=== PATIENT | female | born 1965 | race Caucasian/White ===

== ENCOUNTER 2019-05-01 17:55 | Emergency (ER) | payer OTHER ==
[2019-05-01 18:38] VITALS: RESP 20; TEMP 98.1
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
[2019-05-01 20:48] VITALS: BP 125/77; PULSE 69
== END 2019-05-01 20:47 | disposition home or self-care (01) ==
LOC: EC 17:55
DX: R51 Headache (principal); M54.2 Cervicalgia; Z88.6 Allergy status to analgesic agent; Z88.1 Allergy status to other antibiotic agents; Z88.5 Allergy status to narcotic agent; Z88.2 Allergy status to sulfonamides; V89.2XXA Person injured in unspecified motor-vehicle accident, traffic, initial encounter; Y92.89 Other specified places as the place of occurrence of the external cause
CPT/HCPCS: 70450; 72125; 99284

== ENCOUNTER 2020-09-20 21:50 | Emergency (ER) | payer BC, OTHER ==
[2020-09-20 21:57] VITALS: BP 131/81; PULSE 69; RESP 16; TEMP 98.1
[2020-09-20] MEDS: MORPHINE SULFATE 4 MG/ML SYRINGE IM STA (22:12)
--- NOTE | 2020-09-20 22:36 | XR ---
EXAMINATION TYPE: XR knee complete LT DATE OF EXAM: 09/20/2020 COMPARISON: NONE HISTORY: Knee pain TECHNIQUE: 3 views FINDINGS: There is no evidence of fracture nor dislocation. There is mild spurring of the medial femo ral and tibial condyles. There is no sign of joint effusion. IMPRESSION: Minimal osteoarthritis in the medial joint space. No fracture.
--- NOTE | 2020-09-20 22:47 | ED ---
Lower Extremity Injury HPI - General Chief Complaint: Extremity Injury, Lower Stated Complaint: L Knee Pain Time Seen by Provider: 09/20/20 21:58 Source: patient, family, RN notes reviewed Mode of arrival: wheelchair Limitations: no limitations - History of Present Illness Initial Comments: Patient is a 55-year-old female that presents to the emergency department complaining of left knee pain. She notes she was running when she felt a pop in her knee. She notes that it is hard to bear weight on that left knee. She notes that she has had a history of knee issues but nothing too serious. She denied ever seeing any specialists for any pain. She was otherwise in no apparent distress or pain while sitting up in bed during exam and interview. Sh maury did have full range of motion of her knee. She did have sensation in her left foot lower leg. She denied any chest pain shortness of breath headache nausea vomiting diarrhea constipation fever fatigue chills. - Related Data Home Medications Medication Instructions Recorded Confirmed Biotin 5 mg PO DAILY 01/23/16 01/26/16 Cyanocobalamin [Vitamin B-12] 500 mcg PO DAILY 01/23/16 01/26/16 L.acidoph,Paracasei, B.lactis 1 each PO DAILY 01/23/16 01/26/16 [Probiotic] Multivit with Calcium,Iron,Min 1 each PO DAILY 01/23/16 01/26/16 [Women's Daily Multivitamin] Previous Rx's Medication Instructions Recorded Ketorolac [Toradol] 10 mg PO Q8HR #15 tab 09/20/20 Allergies Allergy/AdvReac Type Severity Reaction Status Date / Time acetaminophen Allergy Rash/Hives Verified 09/20/20 21:57 [From Darvocet-N 100] erythromycin base Allergy Rash/Hives Verified 09/20/20 21:57 propoxyphene Allergy Rash/Hives Verified 09/20/20 21:57 [From Darvocet-N 100] sulfamethoxazole Allergy Rash/Hives Verified 09/20/20 21:57 [From Bactrim] trimethoprim [From Bactrim] Allergy Rash/Hives Verified 09/20/20 21:57 Review of Systems ROS Statement: Those systems with pertinent positive or pertinent negative responses have been documented in the HPI. ROS Other: All systems not noted in ROS Statement are negative. Past Medical History Past Medical History: No Reported History History of Any Multi-Drug Resistant Organisms: None Reported Past Surgical History: Hernia Repair Additional Past Surgical History / Comment(s): D & C Past Anesthesia/Blood Transfusion Reactions: Previous Problems w/ Anesthesia Additional Past Anesthesia/Blood Transfusion Reaction / Comment(s): slow to wake up w/hernia repair Past Psychological History: No Psychological Hx Reported Smoking Status: Never smoker Past Alcohol Use History: Occasional Past Drug Use History: None Reported - Past Family History Mother Family Medical History: No Reported History General Exam Limitations: no limitations General appearance: alert, in no apparent distress Head exam: Present: atraumatic, normocephalic, normal inspection Eye exam: Present: normal appearance, PERRL, EOMI. Absent: scleral icterus, conjunctival injection, periorbital swelling Respiratory exam: Present: normal lung sounds bilaterally Cardiovascular Exam: Present: regular rate, normal rhythm, normal heart sounds. Absent: systolic murmur, diastolic murmur, rubs, gallop, clicks Extremities exam: Present: normal inspection, full ROM, normal capillary refill. Absent: tenderness, pedal edema, joint swelling, calf tenderness Left Knee exam: Present: pain/laxity with valgus Neurological exam: Present: alert, oriented X3 Psychiatric exam: Present: normal affect, normal mood Skin exam: Present: warm, dry, intact, normal color. Absent: rash Course Vital Signs 09/20/20 21:53 Temperature 98.1 F Pulse Rate 69 Respiratory 16 Rate Blood Pressure 131/81 O2 Sat by Pulse 97 Oximetry Medical Decision Making - Medical Decision Making 55-year-old female complaining of left knee pain after running and feeling a pop. X-ray the left knee ordered. X-ray negative for any acute fractures. Given clinical symptoms and negative imaging patient most likely has soft tissue injury to the medial aspect of the left knee. Case discussed with Dr. Schaefer, patient can discharge home with follow-up orthopedics. Patient states that she will [facility] or orthopedist that did her 's quadricep repair. Disposition Clinical Impression: Left knee pain Disposition: HOME SELF-CARE Condition: Stable Instructions (If sedation given, give patient instructions): Knee Pain (ED) Additional Instructions: Please return to the Emergency Department if symptoms worsen or any other concerns. Avoid any excessive weight bearing activity on the left leg until he can be seen by orthopedics. Wear knee immobilizer throughout the day. Take Tylenol and Motrin as needed for pain control. Take Tylenol 3 as prescribed. Is patient prescribed a controlled substance at d/c from ED?: No Referrals: Maycol Almonte MD [Primary Care Provider] - 1-2 days Time of Disposition: 22:47
[2020-09-20] MEDS: ACET/COD 300 MG/30 MG STARTER PACK 6 TAB BTL PO STA (23:08)
== END 2020-09-20 23:09 | disposition home or self-care (01) ==
LOC: EC 21:50
DX: M25.562 Pain in left knee (principal)
CPT/HCPCS: 96372; 99283

== ENCOUNTER → 2020-11-01 | Outpatient (CLI) | payer BC ==
[2020-11-01 17:55] LABS: Chol/HDL Ratio 3.4
[2020-11-01 18:02] LABS: Progesterone 3.4 ng/mL
[2020-11-01 18:03] LABS: Estradiol 128.6 pg/mL; Luteinizing Hormone 8.6 mIU/mL; Prolactin 7.1 ng/mL (2.8-29.2); T4, Free (Free Thyroxine) 1.1 ng/dL (0.80-1.80)
[2020-11-01 18:04] LABS: Follicle Stimulating Hormone 11.2 mIU/mL
== END | disposition home or self-care (01) ==
LOC: LABWHC1 10:44
PROVIDERS: ATTEND Obstetrics & Gynecology
DX: Z13.220 Encounter for screening for lipoid disorders (principal); Z13.29 Encounter for screening for other suspected endocrine disorder; N95.1 Menopausal and female climacteric states
CPT/HCPCS: 36415; 80061; 82670; 82947; 83001; 83002; 84144; 84146; 84439; 84443; 84479

== ENCOUNTER → 2020-12-03 | Outpatient (CLI) | payer BC ==
[2020-12-03 14:18] LABS: Basophils # (A) 0.1 k/uL (0-0.2); Basophils % (A) 1 %; Eosinophils # (A) 0.3 k/uL (0-0.7); Eosinophils % (A) 3 %; HCT 41.9 % (34.0-46.0); HGB 14.6 gm/dL (11.4-16.0); Lymphocytes # (A) 2.6 k/uL (1.0-4.8); Lymphocytes % (A) 25 %; MCH 31.6 pg (25.0-35.0); MCV 90.2 fL (80.0-100.0); Mean Platelet Volume 6.9; Monocytes # (A) 0.7 k/uL (0-1.0); Monocytes % (A) 6 %; Neutrophils # (A) 6.7 k/uL (1.3-7.7); Neutrophils % (A) 64 %; Platelet Count 479 k/uL (150-450); RBC 4.64 m/uL (3.80-5.40); RDW 12.6 % (11.5-15.5); WBC 10.4 k/uL (3.8-10.6)
== END | disposition home or self-care (01) ==
LOC: LABPAT 13:02
PROVIDERS: ATTEND Obstetrics & Gynecology
DX: Z01.818 Encounter for other preprocedural examination (principal)
CPT/HCPCS: 36415; 85025; 93005

== ENCOUNTER 2020-12-09 06:31 | Day surgery (SDC) | payer BC ==
[2020-12-05 15:27] VITALS: BMI 26.2
--- NOTE | 2020-12-05 17:14 | P.HPOB ---
History of Present Illness H&P Date: 12/05/20 Chief Complaint: Dysfunction uterine bleeding and possible fibroids Louise is a 55-year-old female with continued vaginal bleeding she is not menopausal based on an ongoing a full year without stopping her menses her FSH LH are also consistent with not menopausal. She does have discomfort bleeding on ultrasound shows endometrial polyp versus endometrial fibroid she is undergoing D&C with hysteroscopy to better define this and if polyp plan for removal. Risks/benefits/alternatives to this procedure were reviewed the patient in detail all questions were answered for her prior to proceeding to the operative room. On physical exam vital signs are stable and afebrile. Heart regular, lungs clear, extremities without pain. Ellik exam shows uterus only we'll plan D&C with hysteroscopy. Past Medical History Past Medical History: Musculoskeletal Disorder Additional Past Medical History / Comment(s): gastric ulcer as a teen, current torn meniscus left knee, uterine fibroid History of Any Multi-Drug Resistant Organisms: None Reported Past Surgical History: Hernia Repair Additional Past Surgical History / Comment(s): D & C Past Anesthesia/Blood Transfusion Reactions: Previous Problems w/ Anesthesia Additional Past Anesthesia/Blood Transfusion Reaction / Comment(s): slow to wake up w/hernia repair Smoking Status: Never smoker - Past Family History Mother Family Medical History: No Reported History Medications and Allergies Home Medications Medication Instructions Recorded Confirmed Type Cyanocobalamin [Vitamin B-12] 500 mcg PO DAILY 01/23/16 12/05/20 History L.acidoph,Paracasei, B.lactis 1 each PO DAILY 01/23/16 12/05/20 History [Probiotic] Multivit with Calcium,Iron,Min 1 each PO DAILY 01/23/16 12/05/20 History [Women's Daily Multivitamin] Ascorbic Acid [Vitamin C] 500 mg PO DAILY 12/05/20 12/05/20 History Calcium Carbonate [Tums] 500 mg PO DAILY 12/05/20 12/05/20 History Menopautonic 1 tab PO DAILY 12/05/20 12/05/20 History Vitamin C/Biotin [Hair, Skin and 1 tab PO DAILY 12/05/20 12/05/20 History Nails Chew] Allergies Allergy/AdvReac Type Severity Reaction Status Date / Time acetaminophen Allergy Rash/Hives Verified 12/05/20 15:06 [From Darvocet-N 100] erythromycin base Allergy Rash/Hives Verified 12/05/20 15:06 propoxyphene Allergy Rash/Hives Verified 12/05/20 15:06 [From Darvocet-N 100] sulfamethoxazole Allergy Rash/Hives Verified 12/05/20 15:06 [From Bactrim] trimethoprim [From Bactrim] Allergy Rash/Hives Verified 12/05/20 15:06 Exam Osteopathic Statement: *. No significant issues noted on an osteopathic structural exam other than those noted in the History and Physical/Consult. Intake and Output 12/05/20 12/05/20 12/05/20 06:59 14:59 22:59 Other: Weight 64.864 kg
[~2020-12-09 06:31] MED LIST: DEXAMETHASONE SOD PHOSPHATE 4 MG/ML 1 ML VIAL IV ONE; LACTATED RINGERS 1,000 ML IV SCH; LIDOCAINE 1% (10MG/ML) FOR IV START INTRADERMA PRN; ONDANSETRON 4 MG/2 ML VIAL IVP ONE; Pre Op ABX Message 1 EACH MISC MISCELLANE ONE; SCOPOLAMINE 1.5MG/72HR PATCH TRANSDERM ONE
[2020-12-09] MEDS ORDERED: HYDROmorphone 0.5 MG/0.5 ML SYRINGE IVP PRN (07:00)
[2020-12-09] MEDS ORDERED: MIDAZOLAM 2 MG/2 ML VIAL ONE (07:38)
[2020-12-09] MEDS ORDERED: GLYCOPYRROLATE 0.2 MG/ML 2 ML VIAL ONE (07:38)
[2020-12-09] MEDS ORDERED: KETOROLAC 15 MG/ML 1 ML VIAL ONE (07:38)
[2020-12-09] MEDS ORDERED: LIDOCAINE 1% INJ 10MG/ML (20 ML MDV) ONE (07:38)
[2020-12-09] MEDS ORDERED: fentaNYL (PF) 50 MCG/ML 2 ML AMP ONE (07:38)
[2020-12-09] MEDS ORDERED: PROPOFOL 10 MG/ML 20 ML VIAL IV ONE (07:38)
--- NOTE | 2020-12-09 08:05 | P.OP ---
Date of Procedure: 12/09/20 Preoperative Diagnosis: Postmenopausal bleeding Postoperative Diagnosis: Same with polyp noted Procedure(s) Performed: D&C with hysteroscopy and polypectomy Anesthesia: SARAH Surgeon: Collin Nava Estimated Blood Loss (ml): 3 IV fluids (ml): 400 Pathology: other (Uterine curettings) Condition: stable Disposition: same day Operative Findings: Pathology pending Description of Procedure: Patient was taken to the operating suite where a general anesthetic was found be adequate. She was prepped and draped in the normal sterile fashion and placed in the dorsal lithotomy position. Initially a weighted speculum was inserted in the vagina and the anterior lip of cervix identified and grasped with a tooth tenaculum. Cervix was then dilated camera was inserted. Polyp was noted extending from the endometrium as well as a polyp on the external cervix. The external cervix polyp was removed following removal of camera with a polyp forceps. Sharp curettings of the endometrium were then obtained and polyp forceps was again used. All of this tissues collected, placed on Telfa, and sent to pathology for evaluation. Camera was reinserted and polyp was believed to be excised in total. All instruments were then removed. Sponge, lap, needle counts were all correct 2. Patient was then taken to the recovery room in stable and satisfactory condition. Plan - Discharge Summary Discharge Rx Participant: No New Discharge Prescriptions: New Ibuprofen [Motrin] 600 mg PO Q6HR PRN #30 tab PRN Reason: Pain No Action Cyanocobalamin [Vitamin B-12] 500 mcg PO DAILY Multivit with Calcium,Iron,Min [Women's Daily Multivitamin] 1 each PO DAILY L.acidoph,Paracasei, B.lactis [Probiotic] 1 each PO DAILY Vitamin C/Biotin [Hair, Skin and Nails Chew] 1 tab PO DAILY Ascorbic Acid [Vitamin C] 500 mg PO DAILY Menopautonic 1 tab PO DAILY Calcium Carbonate [Tums] 500 mg PO DAILY Discharge Medication List Cyanocobalamin [Vitamin B-12] 500 mcg PO DAILY 01/23/16 [History] L.acidoph,Paracasei, B.lactis [Probiotic] 1 each PO DAILY 01/23/16 [History] Multivit with Calcium,Iron,Min [Women's Daily Multivitamin] 1 each PO DAILY 01/23/16 [History] Ascorbic Acid [Vitamin C] 500 mg PO DAILY 12/05/20 [History] Calcium Carbonate [Tums] 500 mg PO DAILY 12/05/20 [History] Menopautonic 1 tab PO DAILY 12/05/20 [History] Vitamin C/Biotin [Hair, Skin and Nails Chew] 1 tab PO DAILY 12/05/20 [History] Ibuprofen [Motrin] 600 mg PO Q6HR PRN #30 tab 12/09/20 [Rx] Follow up Appointment(s)/Referral(s): Collin Nava DO [Doctor of Osteopathic Medicine] - 1 Week Patient Instructions/Handouts: *Surgery [facility] - Scopalamine Patch Instructions Activity/Diet/Wound Care/Special Instructions: No heavy Lifting, limit stairs and driving, and pelvic rest. If any high temperatures, heavy bleeding, or severe pain call my office Discharge Disposition: HOME SELF-CARE
[2020-12-09 08:13] VITALS: TEMP 98
[2020-12-09 08:32] VITALS: RESP 16
[2020-12-09 09:35] VITALS: BP 107/71; PULSE 53
== END 2020-12-09 09:52 | disposition home or self-care (01) ==
LOC: OR 06:31
PROVIDERS: ATTEND Obstetrics & Gynecology
DX: N93.8 Other specified abnormal uterine and vaginal bleeding (principal); N95.0 Postmenopausal bleeding
CPT/HCPCS: 58558; 81025; 88305; J2250; J1100; J2405; J2001; J3010; J1885; J2704

== ENCOUNTER → 2021-03-05 | Outpatient (CLI) | payer BC ==
[2021-03-05 16:57] LABS: Basophils % (A) 1 %; Eosinophils % (A) 3 %; HCT 41.2 % (34.0-46.0); HGB 13.7 gm/dL (11.4-16.0); Lymphocytes # (A) 2.6 k/uL (1.0-4.8); Lymphocytes % (A) 20 %; MCH 30.8 pg (25.0-35.0); MCHC 33.2 g/dL (31.0-37.0); MCV 92.9 fL (80.0-100.0); Mean Platelet Volume 6.8; Monocytes % (A) 7 %; Neutrophils # (A) 8.5 k/uL (1.3-7.7); Neutrophils % (A) 67 %; Platelet Count 467 k/uL (150-450); RBC 4.44 m/uL (3.80-5.40); RDW 12.5 % (11.5-15.5); WBC 12.7 k/uL (3.8-10.6)
[2021-03-05 16:58] LABS: Basophils # (A) 0.1 k/uL (0-0.2); Eosinophils # (A) 0.4 k/uL (0-0.7); Monocytes # (A) 0.9 k/uL (0-1.0)
== END | disposition home or self-care (01) ==
LOC: LABPAT 16:14
PROVIDERS: ATTEND Obstetrics & Gynecology
DX: Z01.812 Encounter for preprocedural laboratory examination (principal)
CPT/HCPCS: 36415; 85025

== ENCOUNTER 2021-03-12 06:22 | Day surgery (SDC) | payer BC ==
[2021-03-04 16:32] VITALS: BMI 26.3
--- NOTE | 2021-03-06 15:58 | P.HPOB ---
History of Present Illness H&P Date: 03/06/21 Chief Complaint: Simple hyperplasia Louise is a 55-year-old female who had simple hyperplasia on D&C approximately 3 months ago. She is scheduled for repeat biopsy for same. Risks/benefits/alternatives have been discussed and she is completed her course of Provera. All questions are answered for her prior to proceeding to the operative room. Past Medical History Past Medical History: Blood Disorder, Osteoarthritis (OA) Additional Past Medical History / Comment(s): Hx Anemia as a teenager. Hx ulcer late teens, early 20's. Precancerous Uterine cells. Hx left knee torn meniscus. History of Any Multi-Drug Resistant Organisms: None Reported Past Surgical History: Hernia Repair, Orthopedic Surgery Additional Past Surgical History / Comment(s): D&C, wisdom teeth, bunionectomy left foot. Past Anesthesia/Blood Transfusion Reactions: Previous Problems w/ Anesthesia Additional Past Anesthesia/Blood Transfusion Reaction / Comment(s): Slow to wake up w/hernia repair. Past Psychological History: No Psychological Hx Reported Smoking Status: Never smoker Past Alcohol Use History: Occasional Past Drug Use History: None Reported - Past Family History Mother Family Medical History: No Reported History Medications and Allergies Home Medications Medication Instructions Recorded Confirmed Type Cyanocobalamin [Vitamin B-12] 500 mcg PO DAILY 01/23/16 03/04/21 History L.acidoph,Paracasei, B.lactis 1 each PO DAILY 01/23/16 03/04/21 History [Probiotic] Multivit with Calcium,Iron,Min 1 each PO DAILY 01/23/16 03/04/21 History [Women's Daily Multivitamin] Ascorbic Acid [Vitamin C] 500 mg PO DAILY 12/05/20 03/04/21 History Calcium Carbonate [Tums] 750 mg PO DAILY 12/05/20 03/04/21 History Menopautonic 1 tab PO DAILY 12/05/20 03/04/21 History Vitamin C/Biotin [Hair, Skin and 1 tab PO DAILY 12/05/20 03/04/21 History Nails Chew] Cholecalciferol [Vitamin D3 (25 25 mcg PO DAILY 03/04/21 03/04/21 History Mcg = 1000 Iu)] Zinc 50 mg PO DAILY 03/04/21 03/04/21 History medroxyPROGESTERone [Provera] 10 mg PO DAILY 03/04/21 03/04/21 History Allergies Allergy/AdvReac Type Severity Reaction Status Date / Time acetaminophen Allergy Rash/Hives Verified 03/04/21 16:05 [From Darvocet-N 100] erythromycin base Allergy Rash/Hives Verified 03/04/21 16:05 propoxyphene Allergy Rash/Hives Verified 03/04/21 16:05 [From Darvocet-N 100] sulfamethoxazole Allergy Rash/Hives Verified 03/04/21 16:05 [From Bactrim] trimethoprim [From Bactrim] Allergy Rash/Hives Verified 03/04/21 16:05 Exam Osteopathic Statement: *. No significant issues noted on an osteopathic structural exam other than those noted in the History and Physical/Consult. - OBG Physical Exam Breast: both: normal (no masses) Abdomen: bowel sounds normal, no diffuse tenderness, no bruit present, no guarding noted, no hepatomegaly, no splenomegaly, no mass Vulva: both: normal Vagina: normal moisture, no discharge Cervix: no lesion, no discharge Uterus: normal size, normal contour Adnexa: both: normal Anus/Rectum: normal perianal skin, no rectal mass, no hemorrhoids, heme negative
[2021-03-12] MEDS ORDERED: HYDROmorphone 0.5 MG/0.5 ML SYRINGE IVP PRN (07:00)
[2021-03-12] MEDS ORDERED: ONDANSETRON 4 MG/2 ML VIAL IVP ONE (07:11)
[2021-03-12] MEDS ORDERED: DEXAMETHASONE SOD PHOSPHATE 4 MG/ML 1 ML VIAL IVP ONE (07:12)
[2021-03-12] MEDS ORDERED: fentaNYL (PF) 50 MCG/ML 2 ML AMP ONE (07:25)
[2021-03-12] MEDS ORDERED: PROPOFOL 10 MG/ML 20 ML VIAL IV ONE (07:25)
[2021-03-12] MEDS ORDERED: LIDOCAINE 1% INJ 10MG/ML (20 ML MDV) ONE (07:25)
[2021-03-12] MEDS ORDERED: MIDAZOLAM 2 MG/2 ML VIAL ONE (07:25)
[2021-03-12] MEDS ORDERED: KETOROLAC 15 MG/ML 1 ML VIAL ONE (07:25)
[2021-03-12 08:07] VITALS: TEMP 97.1
--- NOTE | 2021-03-12 08:40 | P.OP ---
Date of Procedure: 03/12/21 Preoperative Diagnosis: Dysfunctional uterine bleeding Postoperative Diagnosis: Same Procedure(s) Performed: D&C with hysteroscopy Anesthesia: SARAH Surgeon: Collin Nava Estimated Blood Loss (ml): 4 IV fluids (ml): 300 Pathology: other (Uterine curettings) Condition: stable Disposition: same day Operative Findings: Pathology pending Description of Procedure: Family was taken to the operating suite where general anesthetic was found be adequate. She was prepped and draped in the normal sterile fashion and placed in the dorsal lithotomy position. Initially a weighted speculum inserted in vagina and the anterior lip cervix identified and grasped with an Allis clamp. Cervix was then dilated and the camera was inserted. specific pathology was noted therefore camera was removed and sharp curettings of endometrium were o btained. All tissues collected, placed on Telfa, and sent to pathology for evaluation. Once this was completed all instruments removed. Sponge, lap, needle counts were all correct 2. Patient was then taken to the recovery room in stable and satisfactory condition. Plan - Discharge Summary Discharge Rx Participant: No New Discharge Prescriptions: New Ibuprofen [Motrin] 600 mg PO Q6HR PRN #30 tab PRN Reason: Pain No Action Cyanocobalamin [Vitamin B-12] 500 mcg PO DAILY Multivit with Calcium,Iron,Min [Women's Daily Multivitamin] 1 each PO DAILY L.acidoph,Paracasei, B.lactis [Probiotic] 1 each PO DAILY Vitamin C/Biotin [Hair, Skin and Nails Chew] 1 tab PO DAILY Ascorbic Acid [Vitamin C] 500 mg PO DAILY Menopautonic 1 tab PO DAILY Cholecalciferol [Vitamin D3 (25 Mcg = 1000 Iu)] 25 mcg PO DAILY Zinc 50 mg PO DAILY Calcium Carbonate [Tums] 750 mg PO DAILY medroxyPROGESTERone [Provera] 10 mg PO DAILY Discharge Medication List Cyanocobalamin [Vitamin B-12] 500 mcg PO DAILY 01/23/16 [History] L.acidoph,Paracasei, B.lactis [Probiotic] 1 each PO DAILY 01/23/16 [History] Multivit with Calcium,Iron,Min [Women's Daily Multivitamin] 1 each PO DAILY 01/23/16 [History] Ascorbic Acid [Vitamin C] 500 mg PO DAILY 12/05/20 [History] Calcium Carbonate [Tums] 750 mg PO DAILY 12/05/20 [History] Menopautonic 1 tab PO DAILY 12/05/20 [History] Vitamin C/Biotin [Hair, Skin and Nails Chew] 1 tab PO DAILY 12/05/20 [History] Cholecalciferol [Vitamin D3 (25 Mcg = 1000 Iu)] 25 mcg PO DAILY 03/04/21 [History] Zinc 50 mg PO DAILY 03/04/21 [History] medroxyPROGESTERone [Provera] 10 mg PO DAILY 03/04/21 [History] Ibuprofen [Motrin] 600 mg PO Q6HR PRN #30 tab 03/12/21 [Rx] Follow up Appointment(s)/Referral(s): Collin Nava DO [Doctor of Osteopathic Medicine] - 1 Week (CALL TO MAKE FOLLOW UP APPOINTMENT.) Patient Instructions/Handouts: *[facility] - Dilation & Curettage Home Instructions, *[facility] - (Anesthesia) Discharge Instructions Outpatient Surgery, Dilation and Curettage (DC)
[2021-03-12 09:01] VITALS: BP 119/80; PULSE 74; RESP 18
== END 2021-03-12 09:33 | disposition home or self-care (01) ==
LOC: OR 06:22
PROVIDERS: ATTEND Obstetrics & Gynecology
DX: N85.01 Benign endometrial hyperplasia (principal); N93.8 Other specified abnormal uterine and vaginal bleeding; M19.90 Unspecified osteoarthritis, unspecified site; Z98.890 Other specified postprocedural states; Z79.890 Hormone replacement therapy; Z88.6 Allergy status to analgesic agent; Z88.1 Allergy status to other antibiotic agents; Z88.2 Allergy status to sulfonamides
CPT/HCPCS: 81025; 88305; 58558; J2250; J1100; J2405; J2001; J3010; J1885; J2704

== ENCOUNTER → 2021-08-12 | Outpatient (CLI) | payer BC ==
[2021-08-12 10:47] LABS: Basophils # (A) 0.12 X 10*3/uL (0.00-0.10); Basophils % (A) 1.2 %; Eosinophils # (A) 0.27 X 10*3/uL (0.04-0.35); Eosinophils % (A) 2.7 %; HCT 43.9 % (37.2-46.3); HGB 14.6 g/dL (12.0-15.0); Immature Grans, Automated 1.7 %; Lymphocytes # (A) 2.44 X 10*3/uL (0.90-5.00); MCH 30.4 pg (27.0-32.0); MCHC 33.3 g/dL (32.0-37.0); MCV 91.5 fL (80.0-97.0); Monocytes # (A) 0.89 X 10*3/uL (0.20-1.00); Monocytes % (A) 8.7 %; NRBC Per 100 WBC 0 /100 WBCS (0.0-0.0); Neutrophils # (A) 6.29 X 10*3/uL (1.80-7.70); Neutrophils % (A) 61.7 %; Platelet Count 414 X 10*3/uL (140-440); WBC 10.18 X 10*3/uL (4.50-10.00)
== END | disposition home or self-care (01) ==
LOC: LABPAT 07:51
PROVIDERS: ATTEND Obstetrics & Gynecology
DX: Z01.812 Encounter for preprocedural laboratory examination (principal)
CPT/HCPCS: 85025

== ENCOUNTER 2021-08-18 06:19 | Day surgery (SDC) | payer BC ==
[2021-08-14 11:20] VITALS: BMI 26.9
[~2021-08-18 06:19] MED LIST changes: +MIDAZOLAM 2 MG/2 ML VIAL IV PRN; -SCOPOLAMINE 1.5MG/72HR PATCH TRANSDERM ONE
--- NOTE | 2021-08-18 06:49 | P.HPOB ---
History of Present Illness H&P Date: 08/18/21 Chief Complaint: Endometrial hyperplasia This is a 55 y.o. female, 3, para 3, who presents for dilatation and curettage with hysteroscopy due to endometrial hyperplasia previously diagnosed by Dr. Nava. She has been on Provera for at least 6 months. 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 She was unable to tolerate endometrial biopsy in the office. OB Hx: . History of 3 vaginal deliveries. Review of Systems Constitutional: Denies chills, Denies fever Eyes: denies blurred vision, denies pain Ears, nose, mouth and throat: Denies headache, Denies sore throat Cardiovascular: Denies chest pain, Denies shortness of breath Respiratory: Denies cough Gastrointestinal: Denies abdominal pain, Denies diarrhea, Denies nausea, Denies vomiting Genitourinary: Denies dysuria, Denies hematuria Menstruation: Reports menses 1-7 days Musculoskeletal: Denies myalgias Integumentary: Denies pruritus, Denies rash Neurological: Denies numbness, Denies weakness Psychiatric: Denies anxiety, Denies depression Past Medical History Past Medical History: No Reported History Additional Past Medical History / Comment(s): Simple endometrial hyperplasia History of Any Multi-Drug Resistant Organisms: None Reported Past Surgical History: Hernia Repair Additional Past Surgical History / Comment(s): D & C X3. LT BUNIONECTOMY Past Anesthesia/Blood Transfusion Reactions: Previous Problems w/ Anesthesia Additional Past Anesthesia/Blood Transfusion Reaction / Comment(s): slow to wake up w/hernia repair Past Psychological History: No Psychological Hx Reported Smoking Status: Never smoker Past Alcohol Use History: Occasional Past Drug Use History: None Reported - Past Family History Mother Family Medical History: No Reported History Medications and Allergies Home Medications Medication Instructions Recorded Confirmed Type Cyanocobalamin [Vitamin B-12] 500 mcg PO DAILY 01/23/16 08/14/21 History L.acidoph,Paracasei, B.lactis 1 each PO DAILY 01/23/16 08/14/21 History [Probiotic] Multivit with Calcium,Iron,Min 1 each PO DAILY 01/23/16 08/14/21 History [Women's Daily Multivitamin] Ascorbic Acid [Vitamin C] 500 mg PO DAILY 12/05/20 08/14/21 History Calcium Carbonate [Tums] 750 mg PO DAILY 12/05/20 08/14/21 History Menopautonic 1 tab PO DAILY 12/05/20 08/14/21 History Vitamin C/Biotin [Hair, Skin and 1 tab PO DAILY 12/05/20 08/14/21 History Nails Chew] Cholecalciferol [Vitamin D3 (25 25 mcg PO DAILY 03/04/21 08/14/21 History Mcg = 1000 Iu)] Zinc 50 mg PO DAILY 03/04/21 08/14/21 History medroxyPROGESTERone [Provera] 10 mg PO DAILY 03/04/21 08/18/21 History Ibuprofen [Motrin] 600 mg PO Q6HR PRN #30 tab 03/12/21 08/14/21 Rx Allergies Allergy/AdvReac Type Severity Reaction Status Date / Time acetaminophen Allergy Rash/Hives Verified 08/18/21 06:36 [From Darvocet-N 100] erythromycin base Allergy Rash/Hives Verified 08/18/21 06:36 propoxyphene Allergy Rash/Hives Verified 08/18/21 06:36 [From Darvocet-N 100] sulfamethoxazole Allergy Rash/Hives Verified 08/18/21 06:36 [From Bactrim] trimethoprim [From Bactrim] Allergy Rash/Hives Verified 08/18/21 06:36 Exam Osteopathic Statement: *. No significant issues noted on an osteopathic structural exam other than those noted in the History and Physical/Consult. HEENT: within normal limits Heart: regular rate and rhythm Lungs: clear to auscultation bilaterally Abdomen: soft, non-tender Pelvic: uterus small, anteverted, non-tender with no adnexal masses or tenderness Extremities: neg. Demetria's Assessment and Plan (1) Endometrial hyperplasia without atypia Current Visit: Yes Status: Acute Code(s): N85.00 - ENDOMETRIAL HYPERPLASIA, UNSPECIFIED SNOMED Code(s): 664328005 Plan: Proceed with dilatation and curettage with hysteroscopy. I have discussed the risks, benefits, and alternative therapies for the above- mentioned procedure and for both sedation/anesthesia as well as necessary blood products administration, if indicated, as they pertain to this patient. The patient has indicated her understanding and acceptance of the risks and procedures discussed.
[2021-08-18] MEDS ORDERED: HYDROmorphone 0.5 MG/0.5 ML SYRINGE IVP PRN (07:00)
[2021-08-18] MEDS ORDERED: fentaNYL (PF) 50 MCG/ML 2 ML AMP ONE (07:24)
[2021-08-18] MEDS ORDERED: PHENYLEPHRINE-0.9% NACL SYG 1,000 MCG/10 ML SYRINGE ONE (07:24)
[2021-08-18] MEDS ORDERED: PROPOFOL 10 MG/ML 20 ML VIAL IV ONE (07:24)
[2021-08-18] MEDS ORDERED: MIDAZOLAM 2 MG/2 ML VIAL ONE (07:24)
[2021-08-18] MEDS ORDERED: LIDOCAINE 2% INJ 20 MG/ML (2 ML VIAL) ONE (07:24)
--- NOTE | 2021-08-18 08:01 | P.OP ---
Date of Procedure: 08/18/21 Preoperative Diagnosis: Simple endometrial hyperplasia Postoperative Diagnosis: History of simple endometrial hyperplasia Procedure(s) Performed: Dilation and curettage with hysteroscopy Anesthesia: other (LMA general) Surgeon: Mary Aguirre Estimated Blood Loss (ml): 5 Pathology: other (Endometrial curettings) Condition: stable Disposition: same day Indications for Procedure: This is a 55 y.o. female, 3, para 3, who presents for dilatation and curettage with hysteroscopy due to endometrial hyperplasia previously diagnosed by Dr. Nava. She has been on Provera for at least 6 months. 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 She was unable to tolerate endometrial biopsy in the office. Operative Findings: Uterus is small, anteverted, sounded to 9 cm. Grade 1-2 uterine prolapse is noted. No adnexal masses are palpated. Minimal endometrial curettings are obtained. Both tubal ostia are visualized. Slight dyssynchronous pattern is visualized. Description of Procedure: The patient is taken to the operating room where she is placed in the dorsal lithotomy position using Shakir stirrups. She is prepped and draped in the normal sterile fashion. Her bladder is drained with a catheter. Examination is performed under anesthesia. Uterus is found to be small, anteverted, with no adnexal masses palpated. A weighted speculum was placed in the patient's vagina and a right angle retractor is used to visualize the anterior lip of the cervix is grasped with a single-tooth tenaculum. The uterus is sounded to 9 cm. Cervix is gently dilated with Eagle dilators. Hysteroscopy is performed using normal saline. The above noted findings are made and pictures are taken. Hysteroscope was removed. Cervix is gently dilated further and then a polyp forceps was introduced with no tissue obtained. A medium-size sharp curette is introduced and sharp curettage was performed until a gritty texture is noted. Very scant endometrial tissue is obtained. The specimen is removed from the fi eld. Single-tooth tenaculum is removed pressure is applied with a ring forcep. Once the ring forcep is removed, no bleeding is noted. All instruments are removed from the vagina. All sponge and needle counts are correct. The patient is then taken to recovery room in stable condition.
[2021-08-18 08:19] VITALS: TEMP 97.2
[2021-08-18 09:23] VITALS: RESP 18
[2021-08-18 09:37] VITALS: BP 134/85; PULSE 71
== END 2021-08-18 10:05 | disposition home or self-care (01) ==
LOC: OR 06:19
PROVIDERS: ATTEND Obstetrics & Gynecology
DX: N85.01 Benign endometrial hyperplasia (principal); Z79.890 Hormone replacement therapy; Z88.6 Allergy status to analgesic agent; Z88.5 Allergy status to narcotic agent; Z88.2 Allergy status to sulfonamides; Z88.3 Allergy status to other anti-infective agents
CPT/HCPCS: 81025; 88305; 58558; J2250; J3010; J2370; J2704; J2001

== ENCOUNTER → 2022-01-09 | Outpatient (CLI) | payer BC ==
[2022-01-09 16:52] LABS: Basophils # (A) 0.06 X 10*3/uL (0.00-0.10); Basophils % (A) 0.6 %; Eosinophils # (A) 0.25 X 10*3/uL (0.04-0.35); Eosinophils % (A) 2.7 %; HCT 42.7 % (37.2-46.3); HGB 14.3 g/dL (12.0-15.0); Immature Grans, Automated 0.6 %; Lymphocytes # (A) 2.24 X 10*3/uL (0.90-5.00); Lymphocytes % (A) 24.2 %; MCH 30.8 pg (27.0-32.0); MCHC 33.5 g/dL (32.0-37.0); Mean Platelet Volume 9.5 fL (9.5-12.2); Monocytes # (A) 0.78 X 10*3/uL (0.20-1.00); Monocytes % (A) 8.4 %; NRBC Per 100 WBC 0 /100 WBCS (0.0-0.0); Neutrophils # (A) 5.85 X 10*3/uL (1.80-7.70); Neutrophils % (A) 63.5 %; Platelet Count 415 X 10*3/uL (140-440); RBC 4.64 X 10*6/uL (4.10-5.20); RDW 12.7 % (11.5-14.5); WBC 9.24 X 10*3/uL (4.50-10.00)
[2022-01-09 17:23] LABS: ALT 20 U/L (8-44); AST 19 U/L (13-35); African American GFR (CKD) 114.6 (60.0-200.0); Albumin 4.4 g/dL (3.8-4.9); Albumin/Globulin Ratio 1.81 (1.60-3.17); Alkaline Phosphatase 78 U/L (41-126); BUN/Creat Ratio 21.77 Ratio (12.00-20.00); Blood Urea Nitrogen 14.3 mg/dL (9.0-27.0); Calcium 9.3 mg/dL (8.7-10.3); Carbon Dioxide 25.7 mmol/L (20.0-27.5); Chloride 101 mmol/L (96-109); Chol/HDL Ratio 3.58 Ratio; Globulin 2.4 g/dL (1.6-3.3); Glucose 81 mg/dL (70-110); LDL Cholesterol,Calculated 145.5 mg/dL (0.0-131.0); Non-African American GFR(CKD) 98.9 (60.0-200.0); Potassium 3.8 mmol/L (3.5-5.5); Sodium 137 mmol/L (135-145); Total Protein 6.8 g/dL (6.2-8.2)
== END | disposition home or self-care (01) ==
LOC: LABWHC1 09:05
PROVIDERS: ATTEND Family Medicine
DX: Z00.00 Encounter for general adult medical examination without abnormal findings (principal); Z51.81 Encounter for therapeutic drug level monitoring; Z13.1 Encounter for screening for diabetes mellitus
CPT/HCPCS: 36415; 80053; 80061; 82306; 83036; 84443; 85025

== ENCOUNTER → 2023-01-29 | Outpatient (CLI) | payer BC ==
[2023-01-29 13:18] LABS: HCT 45.8 % (37.2-46.3); HGB 15.2 g/dL (12.0-15.0); MCH 30.5 pg (27.0-32.0); MCHC 33.2 g/dL (32.0-37.0); Mean Platelet Volume 10.2 FL (9.5-12.2); NRBC Per 100 WBC 0 X 10*3/uL (0.00-0.01); Platelet Count 383 X 10*3/uL (140-440); RBC 4.98 X 10*6/uL (4.10-5.20); RDW 12.4 % (11.5-14.5); WBC 8.11 X 10*3/uL (4.50-10.00)
[2023-01-29 13:39] LABS: % Iron Saturation 31.87 (12.00-45.00); Chol/HDL Ratio 3.26 Ratio; Iron 116 UG/DL (50-170); LDL Cholesterol,Calculated 125.5 mg/dL (0.0-131.0); Total Iron Binding Capacity 364 UG/DL (228-460)
[2023-01-29 13:42] LABS: ALT 19 U/L (8-44); AST 24 U/L (13-35); Albumin 4.6 g/dL (3.8-4.9); Albumin/Globulin Ratio 1.84 Ratio (1.60-3.17); Alkaline Phosphatase 77 U/L (41-126); BUN/Creat Ratio 22.62 Ratio (12.00-20.00); Blood Urea Nitrogen 18.1 mg/dL (9.0-27.0); Calcium 9.8 mg/dL (8.7-10.3); Carbon Dioxide 23.6 mmol/L (21.6-31.8); Chloride 114 mmol/L (96-109); Globulin 2.5 g/dL (1.6-3.3); Glucose 89 mg/dL (70-110); Potassium 4.5 mmol/L (3.5-5.5); Sodium 152 mmol/L (135-145); Total Bilirubin 0.4 mg/dL (0.3-1.2); Total Protein 7.1 g/dL (6.2-8.2)
== END | disposition home or self-care (01) ==
LOC: LABWHC1 08:59
PROVIDERS: ATTEND Family Medicine
DX: Z00.00 Encounter for general adult medical examination without abnormal findings (principal); Z86.39 Personal history of other endocrine, nutritional and metabolic disease
CPT/HCPCS: 36415; 80053; 80061; 82607; 82728; 82747; 83540; 83550; 85027

== ENCOUNTER → 2024-01-18 | Outpatient (CLI) | payer BC ==
--- NOTE | 2024-01-24 10:56 | MM ---
Reason for Exam: Screening (asymptomatic). Last screening mammogram was performed 12 month(s) ago. Patient History: Menarche at age 14. First Full-Term at age 29. Patient has history of breast feeding. Patient used Hormonal Contraceptives for 15 years. Risk Values: Antonieta 5 year model risk: 1.4%. NCI Lifetime model risk: 7.8%. Prior Study Comparison: 01/05/2001 Bilateral Screening Mammogram, [facility]. 02/27/2001 Left Special View Mammogram, [facility]. 01/31/2002 Bilateral Screening Mammogram, [facility]. 01/08/2022 Bilateral Screening Mammogram, [facility]. 01/12/2023 Bilateral Screening Mammogram, [facility]. Tissue Density: The breasts are heterogeneously dense, which may obscure small masses. Findings: Analyzed By CAD. Right breast: There is no suspicious group of microcalcifications or new suspicious mass. Left breast: There is no suspicious group of microcalcifications or new suspicious mass. Overall Assessment: Negative, BI-RAD 1 Management: Screening Mammogram of both breasts in [address] [facility] will attempt to contact patient to return for supplemental views and ultrasound if indicated. Patient should continue monthly self-breast exams. A clinical breast exam by your physician is recommended on an annual basis. This exam should not preclude additional follow-up of suspicious palpable abnormalities. Note on Antonieta scores and lifetime risk: 1. A Antonieta score greater than 3% is considered moderate risk. If this is the case, consider specialist referral to assess eligibility for a risk reducing agent. 2. If overall lifetime risk for the development of breast cancer is 20% or higher, the patient may qualify for future screening with alternating mammogram and breast MRI. [facility], , 01/24/2024 10:53 AM. Electronically signed and approved by: Maurice Sliver DO
== END | disposition home or self-care (01) ==
LOC: RADMAMWWP 15:32
PROVIDERS: ATTEND Obstetrics & Gynecology
DX: Z12.31 Encounter for screening mammogram for malignant neoplasm of breast (principal); R92.333 Mammographic heterogeneous density, bilateral breasts
CPT/HCPCS: 77063; 77067